=== PATIENT | female | born 1955 | race Caucasian/White ===

== ENCOUNTER 2016-08-11 20:27 | Emergency (ER) ==
[2016-08-11] MEDS ORDERED: NS 1,000 ML IV ONE (21:00)
[2016-08-11] MEDS ORDERED: ZOFRAN IV ONE ×2 (21:00→23:59)
--- NOTE | 2016-08-11 21:08 | PROVIDER DOCUMENTATION ---
HPI-General Adult - General Chief Complaint: Nausea/Vomiting Stated Complaint: SPLITTING UP BLOOD, ACID REFLUX Time Seen by Provider: 08/11/16 20:49 Source: patient, other (friend) Allergies/Adverse Reactions: Patient Allergies Allergy/AdvReac Type Severity Reaction Status Date / Time prochlorperazine edisylate * Allergy Severe ANAPHYLAXIS Verified 08/11/16 21:12 [From Compazine] prochlorperazine maleate * Allergy Severe ANAPHYLAXIS Verified 08/11/16 21:12 [From Compazine] hydroxyzine HCl * AdvReac Unknown Verified 08/11/16 21:12 [From Vistaril] hydroxyzine pamoate * AdvReac Unknown Verified 08/11/16 21:12 [From Vistaril] Home Medications: Home Medication List Medication Instructions Recorded Confirmed Last Taken Type Esomeprazole [Nexium] 40 mg PO DAILY 04/16/12 08/11/16 08/09/16 History Bupropion X.l. [Wellbutrin Xl] 150 mg PO DAILY #30 tablet 04/20/12 08/11/16 Rx Trazodone [Desyrel] 150 mg PO QHS #30 tablet 04/20/12 08/11/16 08/09/16 Rx Promethazine [Phenergan] 25 mg PO Q6H PRN PRN 10/17/15 08/11/16 08/09/16 History Ziprasidone [Geodon] 60 mg PO BID 10/17/15 08/11/16 08/09/16 History - History of Present Illness -Gen Adult Nature of Presenting Problems: 61 y/o WF with a PMHx of GERD, Bipolar, Anxiety, PTSD and depression that presents tot he ED with a 4 day of nausea, emesis, dizziness an hot flashes. Pt states onset of symptoms began after taking Vistaril which was prescribed by her Psychiatrist. Denies any alleviating factors. No other pertinent ROS. No other issues. Location of Pain/Injury: reports: none Pain Radiation: reports: no radiation Quality of Pain: reports: none Severity: reports: moderate Onset/Duration: reports: 4 days ago Timing: reports: still present Context/Activities at Onset: reports: none Modifying Factors: improves with: nothing Associated Symptoms: reports: dizziness, nausea, vomiting Review of Systems - Adult - REVIEW OF SYSTEMS - ADULT Constitutional: reports: other (hot flash) Eyes: reports: no symptoms reported Ears, Nose, Mouth & Throat: reports: no symptoms reported Cardiovascular: reports: no symptoms reported Respiratory: reports: no symptoms reported Gastrointestinal: reports: nausea, vomiting Genitourinary: reports: no symptoms reported Musculoskeletal: reports: no symptoms reported Integumentary: reports: no symptoms reported Neurological: reports: dizziness/vertigo Psychiatric: reports: no symptoms reported Endocrine: reports: no symptoms reported Hematologic/Lymphatic: reports: no symptoms reported Allergic/Immunologic: reports: no symptoms reported Past History - Adult - PAST MEDICAL HISTORY-ADULT Review of Records: reports: Old Records Reviewed, Nursing Assessment Review, Medications Reviewed Major Childhood Illnesses: reports: denies history Cardiovascular: reports: denies history Respiratory: reports: denies history Gastrointestinal: reports: GERD Obstetrical/Gynecological: reports: denies history Genitourinary: reports: denies history Musculoskeletal: reports: chronic pain, intervertebral disc disease, neck/back injury (sciatica) Neurological: reports: denies history Endocrine/Immune: reports: denies history Other Conditions: reports: denies history - IMMUNIZATION STATUS Childhood Immunizations: See Nurse Assessment Flu Vaccine: See Nurse Assessment - FAMILY HISTORY Family History: reviewed, not pertinent - SOCIAL HISTORY Smoking: denies Substance Use: none/never Alcohol Use Frequency: never Living Situation: alone Physical Exam-General - PHYSICAL EXAM-ADULT Initial Vital Signs Reviewed: Yes - CONSTITUTIONAL General Appearance: appears well, mild distress - EYES Eyes: PERRL/EOMI, pink conjunctivae. negative: sclera injected, scleral icterus - HEAD, EARS, NOSE, MOUTH & THROAT HENMT: normocephalic/atraumatic, moist mucous membranes, normal ENT inspection, other (no teeth). negative: pharyngeal erythema, tonsillar exudate - NECK Neck: non-tender - RESPIRATORY Respiratory: chest non-tender, lungs clear, normal breath sounds. negative: crackles, rales, rhonchi, stridor, wheezing - CARDIOVASCULAR Cardiovascular: normal peripheral pulses, regular rate, rhythm. negative: no murmur - CHEST (BREASTS) Chest/Breast: no tenderness - GASTROINTESTINAL (ABDOMEN) Abdominal Exam: normal bowel sounds, tenderness. negative: guarding, rigid, rebound - GENITOURINARY Female Genitalia/Pelvic Exam: deferred Rectal Exam: deferred - LYMPHATIC Lymphatic: no adenopathy - MUSCULOSKELETAL Back Exam: negative: normal inspection, no vertebral tenderness, swelling Extremity: normal range of motion, non-tender. negative: swelling - SKIN Integumentary: normal color, normal turgor, warm/dry. negative: swelling, tenderness - NEUROLOGIC Neurologic: grossly normal, no motor/sensory deficits. negative: facial droop, focal weakness, motor weakness, sensory deficit - PSYCHIATRIC Psych/Mental Status: normal mood/affect, normal thought content, normal thought process, oriented x 3 Progress - PLAN OF CARE/RESULTS Progress/Plan/Lab Results: Laboratory Tests 08/11/16 08/11/16 08/11/16 21:00 21:00 21:00 WBC 13.47 H RBC 4.81 Hgb 15.1 Hct 43.3 MCV 90.0 MCH 31.4 H MCHC 34.9 RDW Std Deviation 14.2 Plt Count 388 MPV 9.2 Immature Gran % (Auto) 0.4 Neut % (Auto) 71.4 Lymph % (Auto) 16.0 L [place] % (Auto) 11.1 H Eos % (Auto) 0.7 Baso % (Auto) 0.4 Immature Gran # (Auto) 0.06 H Neut # (Auto) 9.61 H Lymph # (Auto) 2.16 [place] # (Auto) 1.50 H Eos # (Auto) 0.09 Baso # (Auto) 0.05 Sodium 135 L Potassium 4.4 Chloride 90 L Carbon Dioxide 25 Anion Gap 20 BUN 14 Creatinine 1.0 H Estimated GFR/1.73 m2 56 BUN/Creatinine Ratio 14 Glucose 148 H Calculated Osmolality 273 Calcium 10.9 H Total Bilirubin 0.27 AST 21 ALT 14 Alkaline Phosphatase 119 H Total Protein 7.9 Albumin 4.9 Globulin 3.0 Albumin/Globulin Ratio 1.6 Amylase 53 Lipase 18 Urine Source CLEAN CATCH Urine Color YELLOW Urine Turbidity CLEAR Urine pH 7.5 Ur Specific [place] 1.016 Urine Protein 100 A Ur Glucose (Stick) NEGATIVE Ur Ketones (Stick) NEGATIVE Urine Blood MODERATE A Urine Nitrite NEGATIVE Urine Bilirubin NEGATIVE Urobilinogen Dipstick NORMAL Urine Leukocytes NEGATIVE Urine WBC (Auto) <10 Urine RBC (Auto) TNTC A U Epithel Cells (Auto) <10 Urine Bacteria (Auto) 1+ Orders Category Date Time Status NPO Diet 08/11/16 20:39 Active AMYLASE [CHEM] Stat Lab 08/11/16 21:00 Completed CBC WITH ELECTRONIC DIFF [HEME] Stat Lab 08/11/16 21:00 Completed COMPREHENSIVE METABOLIC PANEL [CHEM] Stat Lab 08/11/16 21:00 Completed LIPASE [CHEM] Stat Lab 08/11/16 21:00 Completed URINALYSIS W/POSS RFLX CULT [URINALYSIS] Stat Lab 08/11/16 21:00 Completed 0.9% Sodium Chloride Inj [Ns] 1,000 ml Med 08/11/16 21:00 Discontinued IV 999 mls/hr Ondansetron [Zofran] Med 08/11/16 21:00 Discontinued 4 mg IV NOW ONE Orders Category Date Time Status NPO Diet 08/11/16 20:39 Active AMYLASE [CHEM] Stat Lab 08/11/16 21:00 Completed CBC WITH ELECTRONIC DIFF [HEME] Stat Lab 08/11/16 21:00 Completed COMPREHENSIVE METABOLIC PANEL [CHEM] Stat Lab 08/11/16 21:00 Completed LIPASE [CHEM] Stat Lab 08/11/16 21:00 Completed URINALYSIS W/POSS RFLX CULT [URINALYSIS] Stat Lab 08/11/16 21:00 Completed 0.9% Sodium Chloride Inj [Ns] 1,000 ml Med 08/11/16 21:00 Discontinued IV 999 mls/hr Ondansetron [Zofran] Med 08/11/16 21:00 Discontinued 4 mg IV NOW ONE Departure - Departure Time of Disposition Order: 23:54 DIAGNOSIS: Medication side effects present Qualifiers: Encounter type: initial encounter Qualified Code(s): T50.905A - Adverse effect of unspecified drugs, medicaments and biological substances, initial encounter Nausea & vomiting Qualifiers: Vomiting type: unspecified Vomiting Intractability: non-intractable Qualified Code(s): R11.2 - Nausea with vomiting, unspecified Disposition: HOME 01 Certified Medical Emergency: Emergent Condition: Good Additional Instructions: PT TO FOLLOW UP WITH PCP IN 1-2 DAYS ED Follow Up Instructions: You have been treated by a care provider in the Emergency Department. These instructions are being provided to you so you can have an understanding of how to care for yourself upon discharge. Upon discharge from the Emergency Department, you are responsible for making arrangements for follow-up care by a physician of your choice. Take all prescribed medications as directed. Return to the Emergency Department immediately for any new or worsening symptoms. You may call the Physician Referral phone number at [phone] to obtain a list of Physicians who are taking new patients. Referrals: Bobo Stockton [Primary Care Provider] -
[2016-08-11 21:21] LABS: MANUAL DIFF NEEDED? NO; URINE CULTURE NEEDED? NO; URINE MICRO REVIEW NEEDED? NO; URINE SOURCE CLEAN CATCH
[2016-08-11 21:26] LABS: BILIRUBIN URINE NEGATIVE (NEGATIVE); BLOOD URINE MODERATE (NEGATIVE); COLOR YELLOW; GLUCOSE URINE NEGATIVE (NEGATIVE); LEUKOCYTES URINE NEGATIVE (NEGATIVE); NITRITE URINE NEGATIVE (NEGATIVE); PH URINE 7.5; PROTEIN URINE 100 mg/dL (NEGATIVE); SP GRAVITY URINE 1.016; TURBIDITY URINE CLEAR (CLEAR); UROBILINOGEN URINE NORMAL (NORMAL)
[2016-08-11 21:27] LABS: UR EPITHELIAL CELLS <10 /HPF (<10); URINE BACTERIA 1+ /HPF; URINE RBC TNTC /HPF (<10); URINE WBC <10 /HPF (<10)
[2016-08-11 21:43] LABS: ALBUMIN 4.9 g/dL (3.5-5.0); CALCIUM 10.9 mg/dL (8.8-10.2); POTASSIUM 4.4 mmol/L (3.5-5.1); TOTAL BILIRUBIN 0.27 mg/dL (0.20-1.00); TOTAL PROTEIN 7.9 g/dL (6.3-8.3)
[2016-08-11 22:41] LABS: BASO% 0.4 % (0.0-0.8); EOS# 0.09 X1000 (0.0-0.7); EOS% 0.7 % (0.0-10.0); HEMATOCRIT 43.3 % (37.0-47.0); HEMOGLOBIN 15.1 g/dL (12.0-16.0); IMM GRAN# 0.06 X1000 (0.0-0.04); IMM GRAN% 0.4 % (0.0-0.5); LYMPH# 2.16 X1000 (1.2-3.4); MCH 31.4 PG (27-31); MCHC 34.9 g/dL (33-37); MONO% 11.1 % (1.7-9.3); MPV 9.2 FL (7.4-10.4); NEUT% 71.4 % (42.2-75.2); PLT 388 X1000 (130-400); RBC 4.81 XMIL (4.2-5.4)
[2016-08-12 00:58] VITALS: BP 183/114
[2016-08-12] MEDS ORDERED: CATAPRES PO ONE (01:03)
== END 2016-08-12 01:13 | disposition home or self-care (01) ==
LOC: ED 20:27
DX: T43.595A Adverse effect of other antipsychotics and neuroleptics, initial encounter (principal); R04.2 Hemoptysis; R42 Dizziness and giddiness; R10.819 Abdominal tenderness, unspecified site; K21.9 Gastro-esophageal reflux disease without esophagitis; G89.29 Other chronic pain; F41.9 Anxiety disorder, unspecified; F32.9 Major depressive disorder, single episode, unspecified; F31.9 Bipolar disorder, unspecified; Z79.899 Other long term (current) drug therapy
CPT/HCPCS: 80053; 81001; 82150; 83690; 85025; J2405; J7030